=== PATIENT | female | born 1960 | race Hispanic/Latino ===

== ENCOUNTER 2016-09-16 10:51 | Emergency (ER) | payer OTHER ==
[~2016-09-16] VITALS: Ht 154.9 cm; Wt 87.7 kg
[2016-09-16 11:04] VITALS: BP 129/84; PULSE 59; RESP 18; O2SAT 99
[2016-09-16] MEDS ORDERED: oxyCODONE-Acetamin 5-325 mg Tablet PO ONE (11:40)
--- NOTE | 2016-09-16 11:40 | ED.REPORT ---
HPI-Abd Pain F 40 and Over Date of Service Sep 16, 2016 ED Provider: Lance Ruiz PA-C Saira is a 56-year-old female who presents with a chief complaint of pain. She reports pain that began suddenly in her right upper quadrant approximately 3 days ago that radiates around to her right side. This is aggravated by motion such as leaning her head forward or stretching her back. She was seen at [facility] and diagnosed with ureterolithiasis. Discharged to home with ibuprofen 600 and Percocet 5/325. She states these are not helpful. She was seen at Dr. Sears office today. According to the patient "they said I did not have anything, and if it was that bad I should just go to the emergency department". Admits chills as well as vomiting without blood. Patient states she was seen approximately 9 days ago and treated antibiotics for urinary tract infection. Denies melena, hematochezia, heartburn, chest pain , palpitation, shortness of breath, dyspnea, wheezing, cough, dysuria, hematuria. Denies smoking. Nursing Notes Stated Complaint: PAIN Chief Complaint: Female Abdominal Pain Nursing Notes Reviewed: Yes Allergies: Coded Allergies: No Known Allergies (Unverified , 09/16/16) Scheduled Ondansetron ODT (Ondansetron ODT) 8 Mg Tab.rapdis 8 MG PO TID Scheduled PRN Ibuprofen (Ibuprofen) 600 Mg Tablet 600 MG PO QID PRN PRN For Pain Oxycodone HCl/Acetaminophen 5-325 (Endocet 5-325) 1 Each Tablet 1 TABLET PO Q6H PRN PRN For Pain General Time Seen by MD: 11:22 Chief Complaint Flank pain right Sudden in Onset?: Yes Past Medical History Past Medical History Rectal fistula. Denies other. Review of Systems General: Admits chills. Denies fever, malaise. HEENT: Denies congestion, headache, sore throat. Respiratory: Denies dyspnea, cough, shortness of breath, wheezing. Cardiovascular: Denies chest pain, palpitations. Gastrointestinal: Admits vomiting, abdominal pain. Denies diarrhea, melena, hematochezia. Genitourinary: Denies frequency, urgency, dysuria, hematuria. Otherwise as noted in HPI. Physical Exam General: Well appearing, well developed, well nourished, no acute distress. Head: Atraumatic, normocephalic. Eyes: No scleral icterus or injection. No discharge. Vision grossly intact. ENT: Voice clear, hearing grossly intact. Respiratory: Regular rate and rhythm. Breath sounds present, clear to auscultation and equal bilaterally. No respiratory distress. No increased work of breathing, speaks in complete sentences. Cardiovascular: Regular rate and rhythm, without murmur, gallop or rub. No pedal edema. Gastrointestinal: Mild global tenderness without guarding or rebound. Bowel sounds normoactive. Back: Normal to inspection. No midline spinous process tenderness. Mild right CVA tenderness to percussion. Skin: Warm and dry. Neurological: Grossly nonfocal. Psychological: Alert and oriented. Speech appropriate, linear and logical. Behavior appropriate. Vital Signs Vital Signs (First) Date Time Temp Pulse Resp B/P Pulse Ox O2 Delivery O2 Flow Rate FiO2 09/16/16 11:04 36.9 59 18 129/84 99 Room Air Initial VS: Vital signs normal Interpretation & Diagnostics Lab Results Interpretation Result Diagram: 09/16/16 1240 09/16/16 1240 Test 09/16/16 12:40 09/16/16 12:58 White Blood Count 8.3th/mm3 (3.8-10.1) Red Blood Count 4.52mil/mm3 (3.90-5.20) Hemoglobin 13.4g/dL (12.0-15.6) Hematocrit 41.4% (35.0-46.0) Mean Corpuscular Volume 91.6fL (81-100) Mean Corpuscular Hemoglobin 29.6pg (27.0-35.0) Mean Corpuscular Hemoglobin Concent 32.4% (32.0-37.0) Red Cell Distribution Width 13.8% (12.3-15.4) Platelet Count 303bil/L (150-400) Neutrophils (%) (Auto) 72.2% (40-74) Lymphocytes (%) (Auto) 22.6% (14-46) Monocytes (%) (Auto) 4.1% (4-12) Eosinophils (%) (Auto) 0.6% (0-5) Basophils (%) (Auto) 0.4% (0-3) Sodium Level 138mEq/L (134-144) Potassium Level 4.6mEq/L (3.5-5.2) Chloride Level 101mEq/L (97-108) Carbon Dioxide Level 25mmol/L (18-29) Blood Urea Nitrogen 10mg/dL (6-24) Creatinine 0.67mg/dL (0.57-1.00) Estimat Glomerular Filtration Rate 130mL/min (>59) Glucose Level 97mg/dL (60-99) Calcium Level 9.6mg/dL (8.5-10.1) Total Bilirubin 0.3mg/dL (0.0-1.2) Aspartate Amino Transf (AST/SGOT) 30U/L (0-50) Alanine Aminotransferase (ALT/SGPT) 31U/L (0-32) Alkaline Phosphatase 61U/L (25-150) Total Protein 8.0g/dL (6.4-8.4) Albumin 4.4g/dL (3.4-5.0) Lipase 27U/L (13-60) Hold [place] Top Tube Received (Received) Urine Color Straw (YELLOW) Urine Appearance Hazy (CLEAR,HAZY) Urine pH 6.0 (5.0-8.0) Urine Specific [place] 1.010 (1.003-1.035) Urine Protein Negativemg/dL (NEG,TRACE) Urine Glucose (UA) Negativemg/dL (NEGATIVE) Urine Ketones Negativemg/dL (NEGATIVE) Urine Occult Blood Negative (NEGATIVE) Urine Nitrite Negative (NEGATIVE) Urine Bilirubin Negative (NEGATIVE) Urine Urobilinogen Normalmg/dL (NORMAL) Urine Leukocyte Esterase Negative (NEGATIVE) Urine RBC 0-2/hpf (0-2) Urine WBC 0-5/hpf (0-5) Urine Epithelial Cells Occasional/hpf (NONE-MOD) Urine Crystals None seen (NONE SEEN) Urine Bacteria None/hpf (NONE-FEW) Urine Hyaline Casts None/lpf (NONE) Urine Granular Casts None seen (NONE SEEN) Urine Waxy Casts None seen (NONE SEEN) Urine Red Blood Cell Casts None seen (NONE SEEN) Urine White Blood Cell Casts None seen (NONE SEEN) Urine Mucus Present (None Seen) Urine Trichomonas None seen (NONE SEEN) Urine Yeast None (NONE SEEN) Urinalysis Comment None Urine Culture Reflexed Not indicated CT Abd / Pelvis Interpretation PROCEDURE: CT ABDOMEN AND PELVIS WITH CONTRAST ([id number]) INDICATIONS: right flank pain IMPRESSION: 1. No evidence of appendicitis. 2. Moderate fecal loading in the right and transverse colon. Please correlate with clinical data. 3. Abnormal CT appearance of the fallopian tubes bilaterally. Recommend pelvic ultrasound for definitive characterization. 4. Findings recommendations telephoned to Sam on 09/16/16 at 1457 hrs. Interpretation / Wet Read by: Interpret - Radiologist US Focused non-OB Pelvis PROCEDURE: US PELVIC SONOGRAM + TRANSVAGINAL SONOGRAM INDICATIONS: abnormal CT findings, fallopian tubes IMPRESSION: Minimal free fluid with right adnexal cysts. Re-Eval/Medical Decision Med Decision/Clinical Course 56-year-old female with chief complaint of abdominal pain that began her right upper quadrant approximately 3 days ago. She reports it radiates to her back. [facility] and diagnosed with ureterolithiasis. However CT KUB was normal, urinalysis was normal. Physical examination is relatively benign with mild right CVA tenderness to palpation and percussion as well as right upper quadrant tenderness without guarding or rebound. CBC, CMP are reassuring. CT abdomen and pelvis with contrast reveals moderate fecal loading and is reassuring regarding abdominal pathology however the fallopian tubes appear abnormal. Etiologies for crests pelvic ultrasound which reveals small amount of free fluid as well as right periadnexal cysts. This is considered to be a incidental finding and not concerning. At this point I do not know why she feels this pain however believe we have ruled out dangerous causes such as cholecystitis, dissecting AAA, diverticulitis , appendicitis, perforation. I believe she is stable and safe to be discharged home. She has appointment to be seen by her primary care provider tomorrow afternoon. Advising continuing her current pain medication regimen and providing additional Zofran. The patient understands and agrees with plan. Source of Hx: Old records Summary of Info: Review of noncontrast CT KUB indicates no urinary calcifications, hydronephrosis. Normal CT. No obstructive uropathy. Re-Evaluation/Progress : Time of Eval: 13:35 )( Re-Eval Abdomen: Soft Re-Evaluation/Progress Note: Patient reports pain is improved somewhat. She still is very mildly tender in her right upper quadrant. Discharge & Departure Primary Impression: Abdominal pain Disposition: Home Discharge Condition All VS Reviewed: Yes Condition: Stable Patient Instructions: Acute Abdominal Pain (ED) Additional Instructions: Evaluation for abdominal pain in the emergency department. History, physical, blood tests, urinalysis and CT scan and ultrasound are reassuring that your pain is unlikely to be caused by an immediately dangerous condition. I believe you are stable and safe to be discharged home. I recommend [id number] MiraLAX to help with constipation. I will write prescription for ondansetron (Zofran) of nausea. Continue taking the pain medications were previously prescribed as instructed. Rest and drink plenty of fluids. Follow-up with your primary care provider as planned tomorrow. Return to emergency department for new or worsening symptoms including increasing abdominal pain, vomiting that does not respond to medication, fever. Referrals: Sana Pennington (PCP) EDSupervising Provider for APC: Lexa Coronel DO copies to: Sana Pennington Seth PA-C Sep 16, 2016 11:40
[2016-09-16] MEDS ORDERED: 0.9% Sodium Chloride 1,000 ML IV ONE (12:07)
[2016-09-16] MEDS ORDERED: IBUP-1827 PO (12:42)
[2016-09-16] MEDS ORDERED: OXYC-407 PO (12:42)
[2016-09-16 12:59] LABS: BASOPHILS % (AUTO) 0.4 % (0-3); EOSINOPHILS % (AUTO) 0.6 % (0-5); MONOCYTES % (AUTO) 4.1 % (4-12); Mean Corpuscular Hemoglobin 29.6 pg (27.0-35.0); Mean Corpuscular Volume 91.6 fL (81-100); NEUTROPHILS % (AUTO) 72.2 % (40-74); Platelet Count 303 bil/L (150-400)
[2016-09-16 14:25] LABS: APPEARANCE,URINE HAZY (CLEAR,HAZY); COLOR,URINE STRAW (YELLOW); OCCULT BLOOD,URINE NEGATIVE (NEGATIVE); UROBILINOGEN,URINE NORMAL (NORMAL)
--- NOTE | 2016-09-16 15:02 | DRSVH ---
PROCEDURE: CT ABDOMEN AND PELVIS WITH CONTRAST ([id number]) INDICATIONS: right flank pain TECHNIQUE: After the administration of intravenous contrast, 5 mm thick sections acquired from the diaphragm to the symphysis. 5 mm coronal and sagittal reformats were acquired. For radiation dose reduction, the following was used: automated exposure control, adjustment of mA and/or kV according to patient siz e. COMPARISON: CT scan abdomen and pelvis 09/13/2016. FINDINGS: Image quality: Excellent. ABDOMEN: Lung bases: Lung bases are clear. Heart size is normal. Solid organs: Liver and spleen are normal in size and enhancement. Gallbladder is within normal crane its. Biliary system is non dilated. Pancreas enhances normally. No adrenal nodules. Kidneys demon strate normal size and enhancement, without hydronephrosis. Peritoneum and bowel: Bowel loops demonstrate normal wall thickness and caliber. Moderate amount sto ol noted in the right and transverse colon. No free fluid or air. The appendix is normal. Nodes and vessels: No retroperitoneal or mesenteric adenopathy by size criteria. Aorta and inferior vena cava are normal in size. Miscellaneous: No ventral hernias. PELVIS: Genitourinary: Bladder wall thickness is normal. The fallopian tubes are prominent bilaterally and c ontain soft tissue density material. Recommend pelvic ultrasound for definitive characterization. Miscellaneous: No inguinal hernias or adenopathy. Bones: No suspicious bony lesions. No vertebral body compression fractures. Spine degenerative disc disease and facet arthropathy are noted. IMPRESSION: 1. No evidence of appendicitis. 2. Moderate fecal loading in the right and transverse colon. Please correlate with clinical data. 3. Abnormal CT appearance of the fallopian tubes bilaterally. Recommend pelvic ultrasound for definit michael characterization. 4. Findings recommendations telephoned to Sam on 09/16/16 at 1457 hrs. Dictated by: Mini Dubois MD, PhD on 09/16/2016 at 14:47 Approved by: Mini Dubois MD, PhD on 09/16/2016 at 14:59
[2016-09-16 15:30] VITALS: BP 121/77; PULSE 63; RESP 16; O2SAT 98
--- NOTE | 2016-09-16 17:30 | DRSVH ---
PROCEDURE: US PELVIC SONOGRAM + TRANSVAGINAL SONOGRAM INDICATIONS: abnormal CT findings, fallopian tubes TECHNIQUE: Real-time scanning was performed of the pelvic organs, with image documentation. Additional endovagi nal scanning was necessary due to incomplete visualization of the adnexal and endometrial structures by transabdominal scanning. COMPARISON: [facility], CT, CT ABD PELVIS W CON, 09/16/2016, 14:06. FINDINGS: (orthogonal measurements) Uterus size: 6.88 cm, 3.03 cm, 4.16 cm Endometrium thickness: 2.70 mm Right ovary size: 1.18 cm, 1.51 cm, 1.10 cm Left ovary size: 1.27 cm, 1.89 cm, 1.18 cm Transabdominal scanning: Limited scanning through the kidneys shows no hydronephrosis. Minimal free fluid is noted within the regions of the right and left adnexa.. Endovaginal scanning: Uterus: Uterus is normal in size and appearance. Endometrium is within normal physiologic limits. N abothian cyst is present. Ovaries: The right ovary demonstrates two adnexal cysts, the largest measuring 12 mm. The left ovary is unremarkable. IMPRESSION: Minimal free fluid with right adnexal cysts. Dictated by: Chanel Neff M.D. on 09/16/2016 at 17:26 Approved by: Chanel Neff M.D. on 09/16/2016 at 17:28
[2016-09-16] MEDS ORDERED: ONDA8TAB10 PO (17:59)
[2016-09-16 18:16] VITALS: BP 118/77; PULSE 66; RESP 16; O2SAT 98
== END 2016-09-16 18:17 | disposition home or self-care (01) ==
LOC: SED 10:51
DX: R10.11 Right upper quadrant pain (principal)
CPT/HCPCS: 74177; 76830; 76856; 80053; 81000; 83690; 85025; 96360; 96372; 99285; J1885; J7030; Q9967